=== PATIENT | female | born 1995 | race Caucasian/White ===

== ENCOUNTER 2017-09-04 19:09 | Emergency (ER) | END 2017-09-04 22:34 | disposition home or self-care (01) ==

== ENCOUNTER 2017-09-06 22:59 | Emergency (ER) | END 2017-09-07 00:57 | disposition home or self-care (01) ==

== ENCOUNTER 2017-10-05 16:12 | Emergency (ER) | END 2017-10-05 19:51 | disposition home or self-care (01) ==